=== PATIENT | female | born 1945 | race African-American/Black ===

== ENCOUNTER 2020-10-06 09:06 | Outpatient (CLI) | payer OTHER, BC ==
[2020-10-06] MEDS ORDERED: BARIUM SULFATE 135 ML SUSP.RECON (E-Z-HD) PO ONE (09:45)
== END 2020-10-06 19:24 | disposition home or self-care (01) ==
LOC: SRD 09:06
PROVIDERS: ATTEND Otolaryngology Plastic Surgery within the Head & Neck
DX: R05 Cough (principal); R13.13 Dysphagia, pharyngeal phase
CPT/HCPCS: 74220-TC